=== PATIENT | female | born 1950 | race Two or more races ===

== ENCOUNTER 2021-05-18 08:45 | Inpatient (IN) | payer OTHER ==
[~2021-05-18] VITALS: Ht 152.4 cm; Wt 61.2 kg
[2021-05-18] MEDS ORDERED: TOPROL XL100 M1 PO (11:31)
[2021-05-18] MEDS ORDERED: NORVASC5 MG PO (11:32)
[2021-05-18] MEDS ORDERED: OMEPRAZOLE-BIC1 EAC1 PO (11:32)
[2021-05-18] MEDS ORDERED: FENOFIBRATE145 MG PO (11:32)
== END 2021-05-22 11:28 | disposition home or self-care (01) | DRG 735 ==
LOC: O/R 05-20 06:22 → OB/GYN 05-20 06:22
PROVIDERS: ADMIT Obstetrics & Gynecology Gynecologic Oncology; ATTEND Obstetrics & Gynecology Gynecologic Oncology
PROC: 0UT20ZZ Resection of Bilateral Ovaries, Open Approach (ICD-10-PCS; 2021-05-20)
PROC: 0UT70ZZ Resection of Bilateral Fallopian Tubes, Open Approach (ICD-10-PCS; 2021-05-20)
PROC: 0DTU0ZZ Resection of Omentum, Open Approach (ICD-10-PCS; 2021-05-20)
PROC: 0DBW0ZZ Excision of Peritoneum, Open Approach (ICD-10-PCS; 2021-05-20)
PROC: 3E1M38Z Irrigation of Peritoneal Cavity using Irrigating Substance, Percutaneous Approach (ICD-10-PCS; 2021-05-20)
PROC: 07TC0ZZ Resection of Pelvis Lymphatic, Open Approach (ICD-10-PCS; principal; 2021-05-20 10:00)
DX: D27.1 Benign neoplasm of left ovary (principal); Z20.822 Contact with and (suspected) exposure to COVID-19